=== PATIENT | female | born 1980 | race Caucasian/White ===

== ENCOUNTER → 2016-09-27 | Day surgery (SDC) | payer OTHER ==
[2016-09-15 10:20] VITALS: BMI 27.0
[~2016-09-27] VITALS: Ht 162.6 cm; Wt 70.5 kg
[~2016-09-27] MED LIST: ATROPINE SULFATE 0.1 MG/ML 5ML SYR IV PRN; CYCL10TA6 PO; CYM/60 PO; EpHEDrine SULFATE INJ 50 MG/ML AMP IV PRN; LIDOCAINE HCL 2% 2 ML VIAL (20MG/ML) ONE; MIDAZOLAM HCL 1 MG/ML 2ML VIAL ONE; ONDA8TAB6 PO; PROPOFOL IV EMULSION 10 MG/ML 20 ML VIAL IV ONE; ZOLP10TA PO
[2016-09-27 10:42] VITALS: Ht 162.6 cm; Wt 70.5 kg
--- NOTE | 2016-09-27 10:50 | Endo History and Physical ---
History & Physical Date of Service: Sep 27, 2016. Chief Complaint: Mucus in Stools Referring Physician: Dr. Doran History of Present Illness 36 yo CF who presents for colonoscopy secondary to mucus in stools. Past Surgical History Hx Cardiac Surgery: No Hx Internal Defibrillator: No Hx Pacemaker: No Hx Abdominal Surgery: Yes ( X 2) Hx of Implantable Prosthesis: No Hx Post-Op Nausea and Vomiting: No Hx Cancer Surgery: No Hx Thoracic Surgery: No Hx Orthopedic: No Hx Urinary Tract Surgery: No Family History Colon CA, IBD Social History Smoking Status: Never Smoker Hx Substance Use: No Hx Alcohol Use: Yes (RARELY) Allergies Coded Allergies: Latex1 -Allergic Contact Dermititis (Verified Allergy, Unknown, RASH, ) NO KNOWN DRUG ALLERGIES (Verified Allergy, Unknown, ., 09/27/16) Current Medications Reported Home Medications Medications Dose Route/Sig Max Daily Dose Days Date Category Zofran (Ondansetron HCl) 8 Mg Tab 8 Mg PO Q8H PRN 09/15/16 Reported Ambien (Zolpidem Tartrate) 10 Mg Tab 1.5 Tab PO HS 09/15/16 Reported Cymbalta (Duloxetine HCl) 60 Mg Cap 1 Cap PO QAM 09/15/16 Reported Flexeril (Cyclobenzaprine Hcl) 10 Mg Tab 10 Mg PO BID 09/15/16 Reported Vital Signs Weight (Kilograms): 70.45 Height (Feet): 5 Height (Inches): 4 Date Time Temp Pulse Resp B/P (MAP) Pulse Ox O2 Delivery O2 Flow Rate FiO2 09/27/16 10:43 36.8 80 16 122/61 98 Room Air Physical Exam General Appearance: WD/WN, no apparent distress Respiratory/Chest: Auscultation: breath sounds normal Cardiovascular: Heart Auscultation: RRR Abdomen: Bowel Sounds: normal Inspection & Palpation: soft, non-distended, no tenderness, guarding & rebound Assessment and Plan Assessment: 36 yo CF who presents for colonoscopy secondary to mucus in stools. Plan: Proceed with colonoscopy.
--- NOTE | 2016-09-27 11:32 | Discharge Instructions ---
Endoscopy Patient Instructions Date / Procedure(s) Performed Sep 27, 2016. Colonoscopy Allergy Information Coded Allergies: Latex1 -Allergic Contact Dermititis (Verified Allergy, Unknown, RASH, ) NO KNOWN DRUG ALLERGIES (Verified Allergy, Unknown, ., 09/27/16) Discharge Date / Findings Sep 27, 2016. Proctitis s/p biopsies Internal hemorrhoids Medication Instructions OK to resume all medications today as prescribed Reported Home Medications Medications Dose Route/Sig Max Daily Dose Days Date Category Zofran (Ondansetron HCl) 8 Mg Tab 8 Mg PO Q8H PRN 09/15/16 Reported Ambien (Zolpidem Tartrate) 10 Mg Tab 1.5 Tab PO HS 09/15/16 Reported Cymbalta (Duloxetine HCl) 60 Mg Cap 1 Cap PO QAM 09/15/16 Reported Flexeril (Cyclobenzaprine Hcl) 10 Mg Tab 10 Mg PO BID 09/15/16 Reported Provider Instructions Activity Restrictions - No exercising or heavy lifting for 24 hours. - Do not drink alcohol the day of the procedure. - Do not drive a car or operate machinery until the day after the procedure. - Do not make any important decisions or sign important papers in 24 hours after the procedure. Following Day: - Return to full activity which may include returning to work/school. Diet Start your diet with liquids and light foods (jello, soup, juice, toast). Then eat your usual diet if not nauseated. Treatment For Common After Affects For mild abdominal pain, bloating, or excessive gas: - Rest - Eat lightly - Lie on right side Follow-Up Information Follow-up with DR. GONZALEZ as scheduled Anesthesia Information What You Should Know You have had a procedure that required some medicine to reduce anxiety and discomfort. This treatment is called moderate sedation. After receiving the treatment, you may be sleepy, but you will be able to breathe on your own. The effects of the treatment may last for several hours. Follow these instructions along with Activity/Diet recommendations noted above: * Do NOT do anything where dizziness or clumsiness would be dangerous. * Rest quietly at home today, then you can be up and about tomorrow. * Have a responsible person stay with you the rest of today. * You may have had an I.V. today. If so, you may take the dressing off later today. Recommendations Call your doctor if: * Trouble breathing * Continuous vomiting for more than 24 hours * Temperature above 101 degrees * Severe abdominal pain or bloating * Pain not relieved by pain medicine ordered * There is increased drainage or redness from any incision * A large amount of rectal bleeding greater than 2-3 tablespoons. (If you had a polyp/s removed or have hemorrhoids, a small amount of blood - from the rectum is to be expected.) * You have any unanswered questions or concerns. IN THE EVENT OF A SERIOUS EMERGENCY, GO TO THE NEAREST EMERGENCY ROOM Your discharge instructions were prepared by provider Francisco J Alicia. Patient Instructions Signature Page Chely Sanchez Patient (or Guardian) Signature/Date: I have read and understand the instructions given to me by my caregivers. Caregiver/RN/Doctor Signature/Date: The above-named patient and/or guardian has received patient instructions on this date. + Original Patient Signature Page (only) stays with chart. Please make copy for patient.
--- NOTE | 2016-09-27 11:37 | Anesthesiology Progress Note ---
Anesthesia Post Op Note Date & Time Sep 27, 2016 at 11:37 Vital Signs Pain Intensity: 0 Vital Signs Past 12 Hours Date Time Temp Pulse Resp B/P (MAP) Pulse Ox O2 Delivery O2 Flow Rate FiO2 09/27/16 11:33 36.8 83 16 100/62 98 Room Air 09/27/16 10:43 36.8 80 16 122/61 98 Room Air Notes Mental Status: alert / awake / arousable, participated in evaluation Pt Amnestic to Procedure: Yes Nausea / Vomiting: adequately controlled Pain: adequately controlled Airway Patency, RR, SpO2: stable & adequate BP & HR: stable & adequate Hydration State: stable & adequate Anesthetic Complications: no major complications apparent
--- NOTE | 2016-09-27 11:41 | GI REPORT ---
Procedure Date: 09/27/2016 11:04 AM THIS REPORT HAS BEEN AMENDED Addendum Number: 1 Addendum Date: 10/04/2016 9:01:48 AM No polyp was removed during this procedure. Biopsies were obtained and pathology is pending. Procedure: Colonoscopy Indications: Mucus in stool Medicines: Monitored Anesthesia Care Complications: No immediate complications. Estimated Blood Loss: Estimated blood loss: none. Procedure: Pre-Anesthesia Assessment: - Prior to the procedure, a History and Physical was performed, and patient medications and allergies were reviewed. The patient's tolerance of previous anesthesia was also reviewed. The risks and benefits of the procedure and the sedation options and risks were discussed with the patient. All questions were answered, and informed consent was obtained. Prior Anticoagulants: The patient has taken no previous anticoagulant or antiplatelet agents. ASA Grade Assessment: II - A patient with mild systemic disease. After reviewing the risks and benefits, the patient was deemed in satisfactory condition to undergo the procedure. After I obtained informed consent, the scope was passed under direct vision. Throughout the procedure, the patient's blood pressure, pulse, and oxygen saturations were monitored continuously. The scope was introduced through the anus and advanced to the terminal ileum. The colonoscopy was performed without difficulty. The patient tolerated the procedure well. The quality of the bowel preparation was good. The terminal ileum, ileocecal valve, appendiceal orifice, and rectum were photographed. Findings: Localized mild inflammation characterized by erythema was found in the rectum. Biopsies were taken with a cold forceps for histology. Multiple small-mouthed diverticula were found in the sigmoid colon. Non-bleeding internal hemorrhoids were found during retroflexion. The hemorrhoids were small. Impression: - Localized mild inflammation was found in the rectum secondary to proctitis. Biopsied. - Diverticulosis in the sigmoid colon. - Non-bleeding internal hemorrhoids. Recommendation: - Resume previous diet. - Continue present medications. - Repeat colonoscopy for surveillance after piecemeal polypectomy. - Return to primary care physician as previously scheduled. Francisco J OleksandrRoss RavinDO 09/27/2016 11:40:51 AM This report has been signed electronically. Note Initiated On: 09/27/2016 11:04 AM I attest to the content of the Intraoperative Record and orders documented therein, exceptions below Francisco J Zamora RavinDO 10/04/2016 9:03:18 AM This report has been signed electronically.
[2016-09-27 12:03] VITALS: BP 110/71; PULSE 75; O2SAT 100
== END | disposition home or self-care (01) ==
LOC: C.GI 10:20
PROVIDERS: ATTEND Internal Medicine
DX: R19.5 Other fecal abnormalities (principal); K62.89 Other specified diseases of anus and rectum; K57.30 Diverticulosis of large intestine without perforation or abscess without bleeding; K64.8 Other hemorrhoids; F32.9 Major depressive disorder, single episode, unspecified

== ENCOUNTER 2017-05-19 16:26 | Emergency (ER) | payer OTHER ==
[~2017-05-19] VITALS: Ht 162.6 cm; Wt 69.6 kg
[~2017-05-19 16:26] MED LIST changes: -FAMO40TA6 PO; -SBTSL/8 SL; -VENL150C56 PO; -ZOLP1TAB PO
[2017-05-19 16:36] VITALS: TEMP 36.9; Ht 162.6 cm; Wt 69.6 kg
[2017-05-19] MEDS ORDERED: GI COCKTAIL PO STA (17:12)
[2017-05-19] MEDS ORDERED: SUCRALFATE 1 GM TAB PO STA (17:12)
[2017-05-19] MEDS ORDERED: FAMOTIDINE 20 MG TAB PO STA (17:12)
[2017-05-19] MEDS ORDERED: VENL150C56 PO (17:24)
[2017-05-19] MEDS ORDERED: ZOLP1TAB PO (17:24)
[2017-05-19] MEDS ORDERED: LIDOCAINE HCL 2% VISC SOLN 20 ML UDC ONE (17:34)
[2017-05-19] MEDS ORDERED: ALUMINUM/MAGNESIUM SUSP 30 ML UDC ONE (17:34)
[2017-05-19 18:00] VITALS: O2SAT 100
[2017-05-19] MEDS ORDERED: SBTSL/8 SL (18:01)
[2017-05-19 18:11] LABS: BASO % 0.4 %; BASO ABS # 0.03 K/uL (0-0.2); EOS % 0.4 %; EOS ABS # 0.03 K/uL (0-0.5); HEMATOCRIT 40.3 % (37-47); HEMOGLOBIN 14.1 g/dL (12.0-16.0); IG# 0.02 K/uL (0.00-0.02); LYMPH % 30.8 %; LYMPH ABS # 2.24 K/uL (1.2-3.4); MEAN CELL VOLUME 90.8 fL (80-100); MEAN CORPUSCULAR HEMOGLOBIN 31.8 pg (25-34); MEAN PLATELET VOLUME 10.8 fL (7.4-10.4); MONO % 7.7 %; MONO ABS # 0.56 K/uL (0.11-0.59); NEUT % 60.4 %; PLATELET COUNT 311 K/uL (130-400); RED CELL DISTRIBUTION WIDTH CV 12.8 % (11.5-14.5); RED CELL DISTRIBUTION WIDTH SD 42.2 fL (36.4-46.3); WHITE BLOOD COUNT 7.28 K/uL (4.8-10.8)
[2017-05-19 18:15] LABS: ISTAT CREATININE 0.7 mg/dl (0.6-1.3); ISTAT IONIZED CALCIUM 1.18 mmol/l (1.12-1.32); ISTAT POTASSIUM 3.7 mEq/L (3.3-5.0)
[2017-05-19 18:28] LABS: ALBUMIN 4.2 gm/dl (3.4-5.0); ALT/SGPT 26 U/L (12-78); BLOOD UREA NITROGEN 13 mg/dl (7-18); CALCIUM 9.2 mg/dl (8.5-10.1); CARBON DIOXIDE 27 mmol/L (21-32); CREATININE 0.72 mg/dl (0.60-1.20); GLUCOSE 92 mg/dl (70-99); LIPASE 146 U/L (73-393); POTASSIUM 3.6 mmol/L (3.5-5.1); SODIUM 137 mmol/L (136-145)
[2017-05-19 18:31] LABS: ALKALINE PHOSPHATASE 79 U/L (45-117); AST/SGOT 22 U/L (15-37); TOTAL PROTEIN 7.6 gm/dl (6.4-8.2)
--- NOTE | 2017-05-19 18:32 | DIAGNOSTIC IMAGING REPORT ---
(CHEST) THORAX WITHOUT CT DOSE: 214.52 mGy.cm CLINICAL HISTORY: 36 years-old Female with quick prep oral contrast . Patient complains of globus sensation. Patient reportedly drank oral contrast prior to the study. TECHNIQUE: Multiaxial CT images of the chest were performed without contrast. A dose lowering technique was utilized adhering to the principles of ALARA. COMPARISON: Chest radiograph 03/25/2014. FINDINGS: No dominant thyroid nodule or pathologic adenopathy identified. Ill-defined soft tissue of the anterior mediastinum suggests residual thymic tissue. The heart is normal in size without pericardial effusion. Thoracic aorta is normal in both course and caliber. Mild dependent subsegmental bibasilar atelectasis. There is no pneumothorax, definite pleural effusion or lobar airspace consolidation to suggest pneumonia. No suspicious pulmonary nodules or masses. The central airways appear patent. Oral contrast is seen within the mid and distal portions of the esophagus and also within the gastric lumen. Moderate stool volume of the imaged colon suggest constipation. No acute abnormality of the imaged upper abdomen. Bilateral breast augmentation with intact-appearing saline implant devices. Soft tissues are otherwise unremarkable. The bones appear to be intact. Broad-based left lateral recess disc osteophyte complex formation is noted at the T11-T12 level causing mild central canal narrowing. IMPRESSION: 1. No acute intrathoracic abnormality identified. 2. No pathologic adenopathy or focal airspace consolidation. 3. Broad-based left lateral recess disc osteophyte complex formation is noted at the T11-T12 level causing mild central canal narrowing Electronically signed by: Orestes Casas M.D. 05/19/2017 6:31 PM Dictated Date/Time: 05/19/2017 6:26 PM
[2017-05-19] MEDS ORDERED: FAMO40TA6 PO (18:48)
[2017-05-19 19:00] VITALS: BP 135/75; PULSE 79; O2SAT 96
--- NOTE | 2017-05-19 19:03 | EMERGENCY ROOM VISIT NOTE ---
History Report prepared by Deborah: Claribel Garcia Under the Supervision of: Dr. Van Bernal M.D. First contact with patient: 17:03 Chief Complaint: OTHER COMPLAINT Stated Complaint: SOMETHING IN THROAT, SPITTING BLOOD, DEAN, NAUSEA Nursing Triage Summary: Coughing up blood from her throat. Had something lodged in February. Airway is patent. Able to drink water. History of Present Illness The patient is a 36 year old female who presents to the Emergency Room with complaints of a persistent sensation of something being stuck in her throat starting 2 months ago. She was eating 2 months ago when she felt like she swallowed something that became stuck in her throat. Since then, she has had the constant feeling of something being stuck in her throat. Over the past week , she has noticed blood after brushing her teeth. She coughed up some blood from her throat today. She was sent to the ED by her PCP. The sensation does not worsen or improve with anything. She has felt SOB walking around and going up stairs. She denies any chance of . Her last menstrual period was on the 15. She rarely uses alcohol and does not smoke. The patient had brain surgery 2 years ago for a Chiari malformation. Source of History: patient Onset: 2 months ago Position: throat Quality: other (something stuck in throat) Timing: other (persistent) Associated Symptoms: + SOB Review of Systems See HPI for pertinent positives & negatives. A total of 10 systems reviewed and were otherwise negative. Past Medical & Surgical Medical Problems: (1) Chiari malformation Surgical Problems: (1) History of (2) Hx of tonsillectomy Family History FHx: cancer Social History Smoking Status: Former Smoker Alcohol Use: none Marital Status: Housing Status: lives with family Occupation Status: unemployed Current/Historical Medications Scheduled Buprenorphine HCl (Buprenorphine HCl), 8 MG SL DAILY Famotidine (Pepcid), 40 MG PO HS Venlafaxine Hcl (Effexor Extended Rel), 150 MG PO DAILY Zolpidem Tartrate (Ambien Er), 12.5 MG PO HS Scheduled PRN Cyclobenzaprine Hcl (Flexeril), 10 MG PO BID PRN for Muscle Spasms Ondansetron Hcl (Zofran), 8 MG PO Q8H PRN for Nausea Allergies Coded Allergies: Latex1 -Allergic Contact Dermititis (Verified Allergy, Unknown, RASH, ) NO KNOWN DRUG ALLERGIES (Verified Allergy, Unknown, ., 09/27/16) Physical Exam Vital Signs Date Time Temp Pulse Resp B/P (MAP) Pulse Ox O2 Delivery O2 Flow Rate FiO2 05/19/17 19:00 79 15 135/75 96 05/19/17 18:00 100 Room Air 05/19/17 18:00 76 18 112/73 99 Room Air 05/19/17 16:36 36.9 89 20 138/78 96 Room Air Physical Exam GENERAL: Patient is a healthy-appearing well-nourished female HEAD: Normocephalic atraumatic EYES: Ocular movements intact pupils equal and react to light OROPHARYNX: Good dentition. No evidence of bleeding in the mouth. mucous membranes are moist no exudates present no erythema or edema present NECK: Supple no nuchal rigidity no stridor on exam CHEST: Good equal expansion LUNGS: Clear and equal to auscultation no wheezing on exam. CARDIAC: Normal S1 and S2 ABDOMEN: Soft nontender no guarding BACK: No CVA tenderness EXTREMITIES: No pain upon palpation normal muscle strength in all groups no clubbing cyanosis or edema NEURO: Patient is following commands and answering questions appropriately. Alert and oriented x3 Cranial Nerves 2-12 grossly intact Medical Decision & Procedures ER Provider Diagnostic Interpretation: Radiology results as stated below per my review and radiologist interpretation: (CHEST) THORAX WITHOUT CT DOSE: 214.52 mGy.cm CLINICAL HISTORY: 36 years-old Female with quick prep oral contrast . Patient complains of globus sensation. Patient reportedly drank oral contrast prior to the study. TECHNIQUE: Multiaxial CT images of the chest were performed without contrast. A dose lowering technique was utilized adhering to the principles of ALARA. COMPARISON: Chest radiograph 03/25/2014. FINDINGS: No dominant thyroid nodule or pathologic adenopathy identified. Ill-defined soft tissue of the anterior mediastinum suggests residual thymic tissue. The heart is normal in size without pericardial effusion. Thoracic aorta is normal in both course and caliber. Mild dependent subsegmental bibasilar atelectasis. There is no pneumothorax, definite pleural effusion or lobar airspace consolidation to suggest pneumonia. No suspicious pulmonary nodules or masses. The central airways appear patent. Oral contrast is seen within the mid and distal portions of the esophagus and also within the gastric lumen. Moderate stool volume of the imaged colon suggest constipation. No acute abnormality of the imaged upper abdomen. Bilateral breast augmentation with intact-appearing saline implant devices. Soft tissues are otherwise unremarkable. The bones appear to be intact. Broad-based left lateral recess disc osteophyte complex formation is noted at the T11-T12 level causing mild central canal narrowing. IMPRESSION: 1. No acute intrathoracic abnormality identified. 2. No pathologic adenopathy or focal airspace consolidation. 3. Broad-based left lateral recess disc osteophyte complex formation is noted at the T11-T12 level causing mild central canal narrowing Electronically signed by: Orestes Casas M.D. 05/19/2017 6:31 PM Dictated Date/Time: 05/19/2017 6:26 PM Laboratory Results 05/19/17 17:47 Red Blood Count 4.44, Mean Corpuscular Volume 90.8, Mean Corpuscular Hemoglobin 31.8, Mean Corpuscular Hemoglobin Concent 35.0, Mean Platelet Volume 10.8, Neutrophils (%) (Auto) 60.4, Lymphocytes (%) (Auto) 30.8, Monocytes (%) (Auto) 7.7, Eosinophils (%) (Auto) 0.4, Basophils (%) (Auto) 0.4, Neutrophils # (Auto) 4.40, Lymphocytes # (Auto) 2.24, Monocytes # (Auto) 0.56, Eosinophils # (Auto) 0.03, Basophils # (Auto) 0.03 05/19/17 17:47 Test 05/19/17 17:47 05/19/17 18:03 White Blood Count 7.28 K/uL (4.8-10.8) Red Blood Count 4.44 M/uL (4.2-5.4) Hemoglobin 14.1 g/dL (12.0-16.0) Hematocrit 40.3 % (37-47) Mean Corpuscular Volume 90.8 fL (80-100) Mean Corpuscular Hemoglobin 31.8 pg (25-34) Mean Corpuscular Hemoglobin Concent 35.0 g/dl (32-36) Platelet Count 311 K/uL (130-400) Mean Platelet Volume 10.8 fL (7.4-10.4) Neutrophils (%) (Auto) 60.4 % Lymphocytes (%) (Auto) 30.8 % Monocytes (%) (Auto) 7.7 % Eosinophils (%) (Auto) 0.4 % Basophils (%) (Auto) 0.4 % Neutrophils # (Auto) 4.40 K/uL (1.4-6.5) Lymphocytes # (Auto) 2.24 K/uL (1.2-3.4) Monocytes # (Auto) 0.56 K/uL (0.11-0.59) Eosinophils # (Auto) 0.03 K/uL (0-0.5) Basophils # (Auto) 0.03 K/uL (0-0.2) RDW Standard Deviation 42.2 fL (36.4-46.3) RDW Coefficient of Variation 12.8 % (11.5-14.5) Immature Granulocyte % (Auto) 0.3 % Immature Granulocyte # (Auto) 0.02 K/uL (0.00-0.02) Est Creatinine Clear Calc Drug Dose 103.5 ml/min Estimated GFR () 124.9 Estimated GFR (Non- 107.7 BUN/Creatinine Ratio 18.2 (10-20) Calcium Level 9.2 mg/dl (8.5-10.1) Total Bilirubin 0.3 mg/dl (0.2-1) Direct Bilirubin < 0.1 mg/dl (0-0.2) Aspartate Amino Transf (AST/SGOT) 22 U/L (15-37) Alanine Aminotransferase (ALT/SGPT) 26 U/L (12-78) Alkaline Phosphatase 79 U/L (45-117) Total Protein 7.6 gm/dl (6.4-8.2) Albumin 4.2 gm/dl (3.4-5.0) Lipase 146 U/L (73-393) Bedside Hemoglobin 14.3 g/dl (12.0-16.0) Bedside Hematocrit 42 % (37-47) Bedside Sodium 140 mEq/L (135-144) Bedside Potassium 3.7 mEq/L (3.3-5.0) Bedside Chloride 101 mEq/L (101-112) Bedside Total CO2 27 mEq/l (24-31) Anion Gap 17.0 mmol/L (16-25) Bedside Blood Urea Nitrogen 13 mg/dl (7-18) Bedside Creatinine 0.7 mg/dl (0.6-1.3) Bedside Glucose (other) 94 mg/dl (70-99) Bedside Ionized Calcium (Kenneth) 1.18 mmol/l (1.12-1.32) Labs reviewed by ED physician. Medications Administered Medications (Trade) Dose Ordered Sig/Dave Route Start Time Stop Time Status Last Admin Dose Admin Famotidine (Pepcid Tab) 20 mg NOW STAT PO 05/19/17 17:12 05/19/17 17:16 DC 05/19/17 17:50 20 MG Sucralfate (Carafate Tab) 1 gm NOW STAT PO 05/19/17 17:12 05/19/17 17:16 DC 05/19/17 17:50 1 GM Lidocaine HCl (Viscous Lidocaine 2% Soln) 20 ml STK-MED ONCE .ROUTE 05/19/17 17:34 05/19/17 17:35 DC 05/19/17 17:51 20 ML Al Hydroxide/Mg Hydroxide (Maalox Susp) 30 ml STK-MED ONCE .ROUTE 05/19/17 17:34 05/19/17 17:35 DC 05/19/17 17:51 30 ML ECG Indication: SOB/dyspnea Rate (beats per minute): 74 Rhythm: normal sinus Findings: no acute ischemic change, no ectopy ED Course 1704: Past medical records reviewed. The patient was evaluated in room C4. A complete history and physical examination was performed. 1712: Carafate Tab 1 gm PO, Famotidine 20 mg PO. 1734: Maalox Susp 30 ml PO, Lidocaine HCl 20 ml PO. 1845: Upon reexamination the patient is resting comfortably. I discussed results and treatment plan with the patient. She verbalizes agreement and understanding. The patient is ready for discharge. Medical Decision This is a 36 y/o female who presents emergency department complaining of a foreign body sensation in her throat. The sensation has been there since . I will note patient has also had problems with reflux previously. The patient was given a GI cocktail, Pepcid and Carafate in the emergency department. Repeat examination revealed improvement patient's symptoms. The patient was sent for CAT scan of the chest with oral contrast. This did not show any evidence of acute process. In addition the patient has normal EKG as well as normal laboratory work. I do feel the patient is well enough to be discharged home for follow-up with her primary care physician. I did recommend the patient see a funeral pre arrangement specialist. The patient was in agreement with the treatment plan. Medication Reconcilliation Current Medication List: was personally reviewed by me Blood Pressure Screening Patient's blood pressure: Normal blood pressure Blood pressure disposition: Did not require urgent referral Impression Primary Impression: Foreign body sensation in throat Scribe Attestation The scribe's documentation has been prepared under my direction and personally reviewed by me in its entirety. I confirm that the note above accurately reflects all work, treatment, procedures, and medical decision making performed by me. Departure Information Dispostion Home / Self-Care Prescriptions Famotidine (Pepcid) 40 Mg Tab 40 MG PO HS for 30 Days, #30 TAB Prov: Van Bernal MD 05/19/17 Referrals Luciano Fuller M.D. (PCP) Forms HOME CARE DOCUMENTATION FORM, IMPORTANT VISIT INFORMATION, WORK / SCHOOL INSTRUCTIONS Patient Instructions ED GERD, My [facility] Additional Instructions Clear liquid diet next 48 hours Take 5 ml Maalox before every meal and at bedtime Follow up with DR Alicia's office You have been examined and treated today on an emergency basis only. This is not a substitute for, or an effort to provide, complete comprehensive medical care. It is impossible to recognize and treat all injuries or illnesses in a single emergency department visit. It is therefore important that you follow up closely with Dr Fuller. Call as soon as possible for an appointment. Thank you for your time and consideration. I look forward to speaking with you again soon. Please don't hesitate to call us if you have any questions.
== END 2017-05-19 19:01 | disposition home or self-care (01) ==
LOC: C.EDB 16:27 → C.EDC 19:01
DX: R09.89 Other specified symptoms and signs involving the circulatory and respiratory systems (principal); R04.2 Hemoptysis; Z87.891 Personal history of nicotine dependence

== ENCOUNTER → 2017-05-19 | Outpatient (CLI) | payer OTHER ==
[~2017-05-19] MED LIST changes: -ATROPINE SULFATE 0.1 MG/ML 5ML SYR IV PRN; -EpHEDrine SULFATE INJ 50 MG/ML AMP IV PRN; +FAMO40TA6 PO; -LIDOCAINE HCL 2% 2 ML VIAL (20MG/ML) ONE; -MIDAZOLAM HCL 1 MG/ML 2ML VIAL ONE; -PROPOFOL IV EMULSION 10 MG/ML 20 ML VIAL IV ONE; +SBTSL/8 SL; +VENL150C56 PO; +ZOLP1TAB PO
== END | disposition home or self-care (01) ==
LOC: C.PAPS 16:12
PROVIDERS: ATTEND Obstetrics & Gynecology
DX: Z12.4 Encounter for screening for malignant neoplasm of cervix (principal)

== ENCOUNTER → 2017-05-19 | Outpatient (CLI) | payer OTHER | END | disposition home or self-care (01) | LOC: C.LABSPEC 16:00 | PROVIDERS: ATTEND Obstetrics & Gynecology | DX: Z20.2 Contact with and (suspected) exposure to infections with a predominantly sexual mode of transmission (principal) ==